=== PATIENT | male | born 1980 | race Caucasian/White ===

== ENCOUNTER 2022-06-14 21:35 | Emergency (ER) | payer BC ==
[2022-06-14 21:48] VITALS: BP 134/80; PULSE 95; RESP 18; TEMP 98.7; BMI 33.0
[2022-06-14] MEDS ORDERED: ERYTHROMYCIN 0.5% OPHTHALMIC OINTMENT 3.5 GM TUBE ONE (22:28)
== END 2022-06-15 00:27 | disposition home or self-care (01) ==
LOC: JERFT 21:35 → JER 21:35 → JERFT 06-15 00:27
DX: T15.92XA Foreign body on external eye, part unspecified, left eye, initial encounter (principal)
CPT/HCPCS: 99283-25